=== PATIENT | female | born 1985 | race Caucasian/White ===

== ENCOUNTER 2016-08-31 19:08 | Emergency (ER) | payer OTHER ==
[~2016-08-31] VITALS: Ht 152.4 cm; Wt 63.5 kg
[~2016-08-31 19:08] MED LIST: AUGMENTIN 875 M1 TAB PO; MEDROL DOSEPAK1 PAC PO; MOTRIN800 MG PO; TESSALON PERLE100 MG PO
--- NOTE | 2016-08-31 20:03 | ED HEADACHE COMPLAINT ---
History of Present Illness General Chief Complaint: Headache Stated Complaint: [place]DLE[place] Source: patient, old records Exam Limitations: no limitations Vital Signs & Intake/Output Vital Signs & Intake/Output Vital Signs Date Time Temp Pulse Resp B/P Pulse O2 O2 Flow FiO2 Ox Delivery Rate 08/31 2156 97.7 70 16 144/88 100 Room Air 08/31 2029 Room Air 08/31 1941 98.9 72 18 133/91 97 Room Air ED Intake and Output 09/01 0000 08/31 1200 Intake Total 1000 Output Total Balance 1000 Intake, IV 1000 Patient 140 lb Weight Allergies Coded Allergies: NO KNOWN ALLERGIES (01/12/12) Reconcile Medications Butalb/Acetaminophen/Caffeine (Fioricet 50-300-40 MG Capsule) 50 MG-300 MG-40 MG CAPSULE 1 TAB PO Q6HR PRN HEADACHE Etonogestrel/Ethinyl Estradiol (Nuvaring Vaginal Ring) 0.12 MG -0.015 MG/24 HR VAG.RING 1 EACH VG Q30D CONTROL (Reported) use for 3 weeks, skip for 1 week Oxycodone HCl 5 MG CAPSULE 1 CAP PO BID PRN PAIN Triage Note: PT TO TRIAGE FOR HEADACHE 10/10 AND DIZZINESS SINCE THIS MORNING. HX OF MIGRAINES. NO OTHER COMPLAINTS, VSS. Triage Nurses Notes Reviewed? yes Onset: Abrupt Duration: day(s): (1), constant Timing: recent history Quality/Severity: moderate, severe, achy, constant Severity Numbers: 10 Head Injury Location: global No Modifying Factors: none Associated Symptoms: photophobia : No Patient currently breastfeeds: No HPI: Is a 31-year-old female with history of headaches presents emergency room for evaluation complaining of sudden onset generalized headache 10 out of 10 associated with photophobia and intermittent dizziness since waking this morning. She is not taken anything for her headache today and does not normally take anything for her migraines. The patient denies any other medical history. She denies nausea vomiting neck pain fever chills recent head trauma or injury. There is been no recent upper respiratory like infections. Her family history is significant in that she states her father of a brain aneurysm. There are no modifying factors or associated symptoms otherwise no vision changes blurry vision. (RUSTY TAN,ZAC) Past History Travel History Traveled to [place] past 21 day No Medical History Any Pertinent Medical History? see below for history Neurological: migraine Tetanus Vaccine: 01/14/12 Surgical History Surgical History: non-contributory Psychosocial History What is your primary language Polish Tobacco Use: Current Not Daily Family History Hx Contributory? No (ZAC CARROLL) Review of Systems Review of Systems Constitutional: Reports: see HPI. All Other Systems: Reviewed and Negative Comments Review of systems: See HPI, All other systems negative. Constitutional, no chills no fever, no malaise HEENT: No visual changes no sore throat no congestion Cardiovascular: No chest pain , no palpitation , Skin, no jaundice no rashes, no change in skin Respiratory: No dyspnea no cough no sputum no hemoptysising/constipation : No dysuria Muscle skeletal: No joint pain, no joint swelling, no back pain, no neck pain, Neurologic: No numbness no confusion, headache Psych: No stress Heme/endocrine: No bruising no bleeding Immunology: No lymphadenopathy, (ZAC CARROLL) Physical Exam Physical Exam General Appearance: well developed/nourished, alert, awake Cranial Nerves: normal hearing, normal speech, PERRL Comments: Well-developed well-nourished person in no acute distress HEENT: Normal EENT exam; PERRL, EOMI, no nystagmus. HEAD is atraumatic. moist mucous membranes. No papilledema Neck: Supple, no lymphadenopathy, normal range of motion without pain or tenderness negative Brudzinski's negative Kernig's Back: Nontender, no CVA tenderness. Full range of motion Cardiovascular: Regular rate and rhythms no murmurs rubs Respiratory: C No respiratory distress. Patient speaking in full complete sentences. Breath sounds clear to auscultation bilaterally: NO W/R/R Abdomen: Soft, nontender nondistended Extremity: No edema, full range of motion of extremities, 5 out of 5 strength noted to bilateral upper and lower extremities Neuro: Alert oriented x3, motor sensory normal, cranial nerves II through XII grossly intact. There were no obvious focal neurologic abnormalities. Skin: No appreciable rash on exposed skin, skin is warm and dry. Psych: Mood and affect is normal, memory and judgment is normal. Core Measures Severe Sepsis Present: No Septic Shock Present: No (ZAC CARROLL) Progress Differential Diagnosis: cluster [place], intracranial Hem., meningitis, migraine [place], musculoskeletal pain, sinusitis, subarach. Hem., tension [place], temporal arteritis, pseudotumor cerebri Plan of Care: Orders Procedure Date/time Status COMPREHENSIVE METABOLIC PANEL 09/01 2007 Complete CBC WITHOUT DIFFERENTIAL 09/01 2007 Complete Saline Lock 08/31 1954 Active URINE 08/31 1954 Complete Laboratory Tests 08/31/16 2020: Anion Gap 11, Estimated GFR > 60, BUN/Creatinine Ratio 16.7, Glucose 85, Calcium 10.2, Total Bilirubin 1.0, AST 16, ALT 31, Alkaline Phosphatase 59, Total Protein 7.6, Albumin 4.5, Globulin 3.1, Albumin/Globulin Ratio 1.5, CBC w Diff NO MAN DIFF REQ, RBC 4.38, MCV 85.4, MCH 28.4, RDW 12.6, MPV 7.0 L, Gran % 49.7 , Lymphocytes % 38.3, Monocytes % 7.1, Eosinophils % 4.5, Basophils % 0.4, Absolute Granulocytes 4.1, Absolute Lymphocytes 3.2, Absolute Monocytes 0.6, Absolute Eosinophils 0.4, Absolute Basophils 0, PUBS MCHC 33.3, Urine Test NEGATIVE Labs ordered old records reviewed patient medicated with morphine 4 mg IV Reglan 10 mg IV Benadryl 50 mg IV IV fluids CAT scan ordered case discussed with Dr. Nicholas 08/31/2016 9:26:49 PM patient reports to feeling better declining anything else for pain when offered pending CAT scan and labs 08/31/2016 10:29:51 PM no change in headache since last reevaluation pending CAT scan 08/31/2016 11:03:37 PM discussed with the patient her CAT scan findings need for close follow up with her primary care physician as well as neurologist she is feeling improved with the Dilaudid feels well enough to go home there no meningeal signs patient is nontoxic appearing no vision changes. We the patient requires further workup at this time case was discussed with Dr. Nicohlas agrees she feels comfortable to plan to return anytime sooner with any concerns. I discussed with the patient at length all of their results. I had an extensive conversation regarding need for close follow up with their primary care physician this week as well as return precautions. I answered all of their questions, they feel comfortable with the plan and follow-up care. I discussed the medications that they will receive with the patient. I gave them signs and symptoms that could indicate an adverse reaction. I have advised them to limit their activities until they can see how they respond to the medication. (RUSTY TAN,ZAC) Diagnostic Imaging: Viewed by Me: CT Scan. Discussed w/RAD: CT Scan. Radiology Impression: PATIENT: RONALD BARRAZA PRESENT AGE: 31 PATIENT ACCOUNT NO: [id number] : 87 LOCATION: [facility] ORDERING PHYSICIAN: ZAC TAN SERVICE DATE: 08/31/16 EXAM TYPE: CAT - CT HEAD ANGIOGRAM EXAMINATION: CT ANGIOGRAM HEAD CLINICAL INFORMATION: Worst headache of life. Father of aneurysm. COMPARISON: None available. TECHNIQUE: Test bolus sequences followed by intravenous administration 120 mL of Optiray 350 intravenous contrast. Helical imaging was performed in the axial plane from the mediastinum to the skull vertex. Delayed postcontrast imaging of the head was also performed. The data was processed at the staff technologist's workstation for generation of MIP sequences. Three-dimensional volume rendered reformatted images were also generated at an offline 3-D workstation. FINDINGS: CTA HEAD: The anterior and posterior intracranial arterial circulations are normal in caliber with no significant arterial stenoses and no acute arterial occlusions. OXYGEN SYSTEM TESTER on the left side. 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 There is a 1.5 mm infundibulum versus aneurysm at the right ophthalmic artery origin on image 78 of series 3. No additional evidence of aneurysm. CT HEAD: No pathologic intracranial enhancement. There is no intracranial hemorrhage, hydrocephalus, extra-axial surface collection, midline shift, or other herniation pattern. Johnson to white matter differentiation is diffusely maintained without evidence of an evolved acute territorial infarct. The basilar cisterns are preserved. No significant soft tissue abnormality. No acute osseous abnormality. Bony exostosis along the roof of the left IAC. The paranasal sinuses and the mastoid air cells are well-aerated. IMPRESSION: - No acute intracranial findings. No intracranial hemorrhage. - There is a 1.5 mm infundibulum versus aneurysm at the right ophthalmic artery origin on image 78 of series 3. No additional evidence of aneurysm. DICTATED BY: LISA LAY MD DATE/TIME DICTATED:08/31/162231 [employer] TECHNICIAN:DARWIN DATE/TIME TRANSCRIBED:08/31/162231 CONFIDENTIAL, DO NOT COPY WITHOUT APPROPRIATE AUTHORIZATION. <Electronically signed in Other Vendor System> SIGNED BY: LISA LAY MD 08/31/16 5160 (ZAC CARROLL) Departure Departure Time of Disposition: 2301 Disposition: HOME OR SELF CARE Condition: Stable Clinical Impression Primary Impression: Headache Referrals: ELTON DICKSON APRN (PCP/Family) LAURA EAGLE,MARELY Murillo Additional Instructions: Follow-up with primary care physician as well as neurologist Dr. Loza this week. Rest, fioricet for headache- this medication has tylenol in it already. ibuprofen 600mg evyer 8 hours. return at anytime sooner with any concerns Departure Forms: Customer Survey General Discharge Information Prescriptions: Current Visit Scripts Butalb/Acetaminophen/Caffeine (Fioricet 50-300-40 MG Capsule) 1 TAB PO Q6HR PRN HEADACHE #12 TAB Oxycodone HCl 1 CAP PO BID PRN PAIN #8 CAP (ZAC CARROLL) PA/COMMERCIAL HVAC SERVICE TECHNICIAN Co-Sign Statement Statement: ED Attending supervision documentation- [] I saw and evaluated the patient. I have also reviewed all the pertinent lab results and diagnostic results. I agree with the findings and the plan of care as documented in the PA's/COMMERCIAL HVAC SERVICE TECHNICIAN's documentation. [x] I have reviewed the ED Record and agree with the PA's/COMMERCIAL HVAC SERVICE TECHNICIAN's documentation. [] Additions or exceptions (if any) to the PAs/COMMERCIAL HVAC SERVICE TECHNICIAN's note and plan are summarized below: [] (DOROTA EAGLE,MARCI Field)
[2016-08-31] MEDS ORDERED: NUVARING VAGIN1 EACH VG (20:23)
[2016-08-31 20:41] LABS: ABSOLUTE BASOPHIL COUNT 0 /CUMM (0.0-0.2); ABSOLUTE EOSINOPHIL COUNT 0.4 /CUMM (0.0-0.7); ABSOLUTE GRANULOCYTE CT 4.1 /CUMM (1.4-6.5); ABSOLUTE LYMPH COUNT 3.2 /CUMM (1.2-3.4); ABSOLUTE MONOCYTE COUNT 0.6 /CUMM (0.10-0.60); BASOPHIL % 0.4 % (0.0-2.0); EOSINOPHIL % 4.5 % (0-5); GRANULOCYTE % 49.7 % (42.2-75.2); HEMATOCRIT 37.4 % (37-47); MEAN CORPUSCULAR HGB 28.4 PG (27.0-31.0); MEAN CORPUSCULAR HGB CONC 33.3 G/DL (33.0-37.0); MEAN CORPUSCULAR VOLUME 85.4 FL (81.0-99.0); PLATELET COUNT 329 /CUMM (130-400); RBC DISTRIBUTION WIDTH 12.6 % (11.5-14.5); RED BLOOD CELL CT 4.38 /CUMM (4.20-5.40); WHITE BLOOD CELL COUNT 8.3 /CUMM (4.8-10.8)
[2016-08-31 21:57] VITALS: BP 144/88
[2016-08-31] MEDS ORDERED: FIORICET 50-301 EACH PO (22:54)
--- NOTE | 2016-08-31 22:58 | CT SCAN REPORT ---
EXAMINATION: CT ANGIOGRAM HEAD CLINICAL INFORMATION: Worst headache of life. Father of aneurysm. COMPARISON: None available. TECHNIQUE: Test bolus sequences followed by intravenous administration 120 mL of Optiray 350 intravenous contrast. Helical imaging was performed in the axial plane from the mediastinum to the skull vertex. Delayed postcontrast imaging of the head was also performed. The data was processed at the chemistry technologist's workstation for generation of MIP sequences. Three-dimensional volume rendered reformatted images were also generated at an offline 3-D workstation. FINDINGS: CTA HEAD: The anterior and posterior intracranial arterial circulations are normal in caliber with no significant arterial stenoses and no acute arterial occlusions. SENIOR SHIPPING CLERK on the left side. 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 There is a 1.5 mm infundibulum versus aneurysm at the right ophthalmic artery origin on image 78 of series 3. No additional evidence of aneurysm. CT HEAD: No pathologic intracranial enhancement. There is no intracranial hemorrhage, hydrocephalus, extra-axial surface collection, midline shift, or other herniation pattern. Johnson to white matter differentiation is diffusely maintained without evidence of an evolved acute territorial infarct. The basilar cisterns are preserved. No significant soft tissue abnormality. No acute osseous abnormality. Bony exostosis along the roof of the left IAC. The paranasal sinuses and the mastoid air cells are well-aerated. IMPRESSION: - No acute intracranial findings. No intracranial hemorrhage. - There is a 1.5 mm infundibulum versus aneurysm at the right ophthalmic artery origin on image 78 of series 3. No additional evidence of aneurysm.
[2016-08-31] MEDS ORDERED: OXYCODONE HCL5 M2 PO (23:02)
== END 2016-08-31 23:13 ==
LOC: ERH 19:08
PROVIDERS: Physician Assistant Medical
DX: R51 Headache (principal)
CPT/HCPCS: 81025; 96374; 96375; J1200; J2765

== ENCOUNTER → 2017-01-05 | Day surgery (SDC) | payer OTHER ==
[~2017-01-05] VITALS: Ht 157.5 cm; Wt 66.7 kg
[~2017-01-05] MED LIST changes: +FIORICET 50-301 EACH PO; +NUVARING VAGIN1 EACH VG; +OXYCODONE HCL5 M2 PO
--- NOTE | 2017-01-05 14:24 | Operative Report ---
Operative/Inv Procedure Report Surgery Date: 01/05/17 Name of Procedure: ESSURE tubal Occlusion Pre-Operative Diagnosis: undesired fertility Post-Operative Diagnosis: ESSURE tubal Occlusion Estimated Blood Loss: scant Surgeon/Punchboard Assembler: BLESSING EAGLE,WILFREDO Field Anesthesia: moderate sedation Implants: 2 essure devices Operative/Procedure Note Note: After the induction of anesthesia the patient was prepped and draped in usual sterile fashion placed in stirrups. Open sided speculum was placed on the anterior lip of the cervix was grasped with a single-tooth tenaculum. Dilation with Hanks dilators was accomplished atraumatically. Hysteroscopic camera was placed using his on as a distention medium, through the cervix and into the uterine cavity. Both tubal ostia were noted there were no fibroids or polyps or other lesions noted. The essure device was Cannulated into the patient's right tube it was released and 6 trailing loops were noted. Attention was then turned to the patient's left tubal ostium which was cannulated with the second Essure device it was released and 6 trailing loops were noted. Single-tooth tenaculum was removed speculum was removed hemostasis was excellent and the patient was moved to recovery room in good condition. Findings: normal anatomy Discharge Disposition: Same Day Admissions
== END ==
LOC: STS 11-25 07:00
DX: Z30.2 Encounter for sterilization (principal); F17.200 Nicotine dependence, unspecified, uncomplicated
CPT/HCPCS: 81025; J2250; J2405